=== PATIENT | female | born 1965 | race Caucasian/White ===

== ENCOUNTER → 2020-09-27 | Outpatient (CLI) | payer OTHER ==
[~2020-09-27] MED LIST: CIPRO250 M1; ESTRACE0.5 MG; HIZAAR; IBUPROFEN 600600 M1 PO; NATURE-THROI48.75 MG; NORCO 5-325 TA1 EACH PO; SIMVASTATIN5 MG; SYNTHROID75 MCG; TAMSULOSIN HCL0.4 MG PO; ZOFRAN ODT4 MG PO
== END ==
LOC: CAT 10:08
PROVIDERS: ATTEND Family Medicine
DX: Z13.6 Encounter for screening for cardiovascular disorders (principal); I25.10 Atherosclerotic heart disease of native coronary artery without angina pectoris; E78.00 Pure hypercholesterolemia, unspecified